=== PATIENT | female | born 1995 | race Hispanic/Latino ===

== ENCOUNTER 2019-06-15 13:08 | Outpatient (CLI) | payer OTHER ==
--- NOTE | 2019-06-15 13:46 | ULT ---
TRANSABDOMINAL PELVIC ULTRASOUND: HISTORY: Spotting after period. TECHNIQUE: Transabdominal imaging of the pelvis performed. FINDINGS: Uterus: No myometrial masses. Uterus dimensions: 6.0 x 3.0 x 5.0 cm. Endometrium: Slightly heterogeneous echotexture. Endometrium diameter: 1.5 cm. Ovaries: Symmetric echotexture. No obvious adnexal masses. Right ovary measures 3.0 x 2.1 x 2.5 cm. Left ovary measures 2.5 x 2.8 x 1.9 cm. Free fluid: None. Ovarian Doppler: Symmetric flow to both ovaries. IMPRESSION: Heterogeneous, thickened endometrium. Correlate clinically. Transcribed Date/Time: 06/15/2019 2:16 PM
== END 2019-06-15 13:09 | disposition home or self-care (01) ==
LOC: SCSULT 13:08
PROVIDERS: ATTEND Nurse Practitioner Women's Health
DX: N92.1 Excessive and frequent menstruation with irregular cycle (principal); N92.6 Irregular menstruation, unspecified; R93.89 Abnormal findings on diagnostic imaging of other specified body structures
CPT/HCPCS: 76856; 93976